=== PATIENT | female | born 1975 | race American Indian/Alaskan Native ===

== ENCOUNTER 2017-02-05 23:08 | Emergency (ER) | payer BC ==
[2017-02-05 23:51] VITALS: BP 111/81
[2017-02-05] MEDS ORDERED: MOTRIN PO ONE (23:55)
[2017-02-05] MEDS ORDERED: MOTRIN ONE (23:57)
== END 2017-02-06 01:05 | disposition left against medical advice (07) ==
LOC: ED 23:08
DX: M79.602 Pain in left arm (principal); Z53.21 Procedure and treatment not carried out due to patient leaving prior to being seen by health care provider